=== PATIENT | female | born 1925 | race Caucasian/White ===

== ENCOUNTER 2016-11-08 11:41 | Emergency (ER) | payer OTHER, BC ==
--- NOTE | 2016-11-08 12:00 | EDPHY ---
H & P Stated Complaint: epistaxis on eliquis Time Seen by Provider: 11/08/16 11:59 HPI/ROS: CHIEF COMPLAINT: Epistaxis, on Eliquis HISTORY OF PRESENT ILLNESS: 89-year-old female arrives via private vehicle complaining of waxing waning bilateral epistaxis for the past 2 days. History of Eliquis secondary to atrial fibrillation. She has not placed direct pressure, has been applying tissues to the outside of her nose when she starts bleeding. No dizziness. No nausea no vomiting. PRIMARY CARE PROVIDER: REVIEW OF SYSTEMS: A ten point review of systems was performed and is negative with the exception of the items mentioned in the HPI PAST MEDICAL & SURGICAL HISTORY: Atrial fibrillation SOCIAL HISTORY: nonsmoker PHYSICAL EXAM (Prior to examination, patient consented to physical exam, hands were washed and my usual and customary physical exam procedures followed) 1) GENERAL: Well-developed, well-nourished, alert and oriented. Appears to be in no acute distress. 2) HEAD: Normocephalic, atraumatic 3) HEENT: Nasal clip in place removed, revealing old tissue in left nostril. This is removed revealing a punctate area of bleeding at the nasal turbinate.] 4) NECK: Full range of motion, no meningeal signs. 5) LUNGS: Clear auscultation bilaterally. 6) HEART: , no murmur, no heave, no gallop. 7) ABDOMEN: No guarding, no rebound, no focal tenderness, 8) MUSCULOSKELETAL: no ecchymosis No peripheral edema or discoloration. 9) BACK: , no visual or palpable abnormality. 10) SKIN: no ecchymosis. DIFFERENTIAL DIAGNOSIS: no particular include but limited to anterior epistaxis , posterior epistaxis, bilateral epistaxis - Personal History Current Tetanus/Diphtheria Vaccine: Yes - Medical/Surgical History Hx Asthma: Yes Hx Chronic Respiratory Disease: No Hx Diabetes: No Hx Cardiac Disease: No Hx Renal Disease: No Hx Cirrhosis: No Hx Alcoholism: No Hx HIV/AIDS: No Hx Splenectomy or Spleen Trauma: No Other PMH: HYPOTYHROID, DEPRESSION, HIP SURGERY/knee problems/aneurysm, asthma, ischemic stroke in 2007 - Social History Smoking Status: Former smoker Constitutional: Initial Vital Signs Temperature (C) 36.8 C 11/08/16 11:47 Heart Rate 96 11/08/16 11:47 Respiratory Rate 18 11/08/16 11:47 Blood Pressure 120/92 H 11/08/16 11:47 O2 Sat (%) 94 11/08/16 11:47 O2 Delivery Mode Room Air Allergies/Adverse Reactions: codeine Allergy (Verified 11/08/16 11:45) morphine Allergy (Verified 11/08/16 11:45) Home Medications: Medication Instructions Recorded Acetaminophen Fan Strength 250 mg PO Q6 PRN 12/02/15 Acetaminophen [Mapap] 250 mg PO Q6 PRN 12/02/15 Albuterol [Proventil Inhaler HFA 1 - 2 puffs IH Q4H 12/02/15 (*)] Aspirin [Aspirin 81mg (*)] 81 mg PO DAILY 12/02/15 Cholecalciferol Vit D3 [Vitamin D3 1,000 units PO DAILY 12/02/15 (*)] Duloxetine HCl [Cymbalta] 40 mg PO DAILY 12/02/15 Fluticasone/Salmeter 500/50Mcg 1 puffs IH BID 12/02/15 [Advair 500/50 (*)] Vit A/Vit C/Vit E/Zinc/Copper 1 each PO DAILY 12/02/15 [Preservision Areds Tablet] traMADol [Ultram 50 mg (*)] 25 mg PO Q4 12/02/15 Acetaminophen [Tylenol 325mg (*)] 650 mg PO Q4 PRN #0 tab 12/04/15 Apixaban [Eliquis] 5 mg PO BID #60 tab 12/04/15 Levothyroxine [Synthroid 112 mcg 112 mcg PO Q48H #30 tab 12/04/15 (*)] Levothyroxine [Synthroid 125 mcg 125 mcg PO Q48H #0 tab 12/04/15 (*)] Metoprolol Tartrate [Lopressor 25 12.5 mg PO BID #60 tab 12/04/15 mg (*)] predniSONE 20 mg PO DAILY #30 tablet 12/04/15 Medical Decision Making Procedures: Procedure: Epistaxis control. Indication: nosebleed not controlled by direct pressure. Risks, benefits, alternatives discussed with patient and consent obtained. The left nares was anesthetized with LAT. The epistaxis was identified. Initial attempts says silver nitrate cautery or unsuccessful as the patient breakthrough bleeding. Subsequently rapid rhino packing placed. Following the procedure the patient was re-examined and the bleeding was well controlled. The patient tolerated the procedure well. The procedure was performed by myself. At discharge the patient's nose is hemostatic. ED Course/Re-evaluation: Patient re-evaluated with serial examinations. Remains hemostatic. Plan will be discharge with rapid rhino packing placed, follow up with [facility] in 2 days. - Data Points Medications Given: Discontinued Medications Oxymetazoline HCl (Afrin Nasal Emerson) 2 sprays EACHNARE EDNOW ONE Stop: 11/08/16 12:12 Last Admin: 11/08/16 12:31 Dose: 2 sprays Silver Nitrate/Potassium Nitrate (Silver Nitrate Applicator) 1 each TP EDNOW ONE Stop: 11/08/16 12:12 Last Admin: 11/08/16 12:31 Dose: 1 each Tetracaine/Epinephrine/Lidocaine (Lets Soln Topical) 1 ea TP EDNOW ONE Stop: 11/08/16 12:12 Last Admin: 11/08/16 12:29 Dose: 1 ea Departure - Departure Disposition: Home, Routine, Self-Care Clinical Impression: Left-sided epistaxis Condition: Good Instructions: Nosebleed (ED) Additional Instructions: If you develop further nosebleed place direct pressure on the area for at least 20 minutes. If bleeding still continues return to the ER. Referrals: DANILO MARCELINO [Other] - 1-2 days without fail
[2016-11-08] MEDS ORDERED: LETS SOLN TOPICAL 1 EA SYR TP ONE (12:11)
[2016-11-08] MEDS ORDERED: SILVER NITRATE APPLICATOR 1 APPL TP ONE ×2 (12:11→12:59)
[2016-11-08] MEDS ORDERED: OXYMETAZOLINE 30 ML NASAL SPRAY EACHNARE ONE (12:11)
[2016-11-08 14:02] VITALS: BP 121/88; PULSE 85; RESP 16; TEMP 98.4; O2SAT 94
== END 2016-11-08 14:00 | disposition home or self-care (01) ==
PROC: 095KXZZ Destruction of Nasal Mucosa and Soft Tissue, External Approach (ICD-10-PCS; principal; 2016-11-08)
DX: R04.0 Epistaxis (principal); J45.909 Unspecified asthma, uncomplicated; Z87.891 Personal history of nicotine dependence; Z79.82 Long term (current) use of aspirin